=== PATIENT | female | born 1995 | race Two or more races ===

== ENCOUNTER 2019-05-18 16:56 | Emergency (ER) | payer OTHER ==
[~2019-05-18] VITALS: Ht 160 cm; Wt 62.6 kg
[2019-05-18 16:59] VITALS: Ht 160 cm; Wt 62.6 kg
[2019-05-18 17:48] VITALS: BP 115/87
== END 2019-05-18 17:48 | disposition other institution (70) ==
LOC: ED 16:56
DX: S00.511A Abrasion of lip, initial encounter (principal); F41.9 Anxiety disorder, unspecified; F32.9 Major depressive disorder, single episode, unspecified; Z88.5 Allergy status to narcotic agent; V69.3XXA Occupant (driver) (passenger) of heavy transport vehicle injured in unspecified nontraffic accident, initial encounter; Y93.I9 Activity, other involving external motion; Y92.413 State road as the place of occurrence of the external cause; Y99.8 Other external cause status
CPT/HCPCS: 82962

== ENCOUNTER 2019-05-18 16:56 | Emergency (ER) | payer OTHER | END 2019-05-18 17:48 | disposition other institution (70) | LOC: ED 16:56 | DX: Z02.89 Encounter for other administrative examinations (principal) ==